=== PATIENT | male | born 1975 | race Caucasian/White ===

== ENCOUNTER 2024-07-02 06:00 | Day surgery (SDC) | payer BC ==
[2024-07-02] MEDS: Lactated Ringers 1,000 ML IV SCH (06:13)
[2024-07-02] MEDS ORDERED: Xylocaine-Mpf 2% 5 Ml Vial ONE (07:26)
[2024-07-02] MEDS ORDERED: Versed 2 MG/2 ML Injection ONE (07:26)
[2024-07-02] MEDS ORDERED: DIPRIVAN 200 MG/20 ML IV ONE ×2 (07:26→07:39)
[2024-07-02 08:29] VITALS: RESP 16
[2024-07-02 08:45] VITALS: O2SAT 100
[2024-07-02 08:57] VITALS: BP 127/80; PULSE 51; TEMP 97.8
--- NOTE | 2024-07-03 08:19 | OP ---
SURGERY DATE/TIME: 07/02/2024 9622 - [id number] PREOPERATIVE DIAGNOSIS: Abdominal pain and screening colon examination. POSTOPERATIVE DIAGNOSES: 1) Gastritis and moderate duodenitis. 2) Normal colon. PROCEDURE: Esophagogastroduodenoscopy with cold forceps biopsy and colonoscopy. SURGEON: Nabil Ch MD. ANESTHESIA: Medications were given by the anesthesia department. INDICATIONS: The patient is a 49-year-old white male patient presenting now with complaints of abdominal pain. He was noted on his history to be taking BC powder and Tylenol and Aleve alternating. The patient was instructed to stop taking BC powder and Aleve but he wished to have his stomach examined. He was also wanting to have a screening colon examination performed. The patient was described the risks of the procedure including the risk of perforation, phlebitis, untoward reaction to medication, bleeding, and missed lesions. The patient verbalized his understanding and desired to have the procedure performed. DESCRIPTION OF PROCEDURE AND FINDINGS: The patient was given medication by the anesthesia department. He had continuous pulse oximetry, ECG monitoring, and intermittent blood pressure monitoring during the examination. He was placed in the left lateral decubitus position. A bite block was placed. A flexible Olympus gastroscope was used to intubate the oropharynx. A view of the larynx appeared to be normal. The scope was easily introduced into the esophagus which appeared to be normal throughout its length. The stomach was entered where normal gastric rugal folds were seen. These distended nicely with insufflation of air. The scope was passed along the greater curvature of the stomach to the antrum. The pylorus was encountered and intubated. The duodenum was inspected and found to be moderately erythematous and edematous as well. No erosions or ulcerations, however, were noted. The scope was withdrawn back toward the stomach. A retroflex view was obtained of the lesser curvature, fundus, and cardia regions of the stomach and these appeared to be essentially normal. The scope was then redirected toward the gastric antrum and cold forceps biopsies were used in the gastric antrum to rule out the presence of Helicobacter pylori-type organisms and confirm the presence of clinical gastritis. The scope was then removed from the patient. Next, a digital rectal examination was performed and revealed normal anal sphincter tone, no masses, and a normal prostate. The flexible Olympus videocolonoscope was used to intubate the rectum. A view of the colon was developed sequentially to the cecum. Upon insertion and withdrawal, including retroflexion in the rectum, no mucosal lesions were encountered. The scope was removed. The patient tolerated the procedure well and was sent back to outpatient recovery room in good condition. Prep was noted to be fair.
== END 2024-07-02 09:12 | disposition home or self-care (01) ==
LOC: SDC 06:00
PROVIDERS: ATTEND Family Medicine
DX: Z12.11 Encounter for screening for malignant neoplasm of colon (principal); K29.70 Gastritis, unspecified, without bleeding; R10.9 Unspecified abdominal pain; K29.80 Duodenitis without bleeding
CPT/HCPCS: 93005; J2250; J2704